=== PATIENT | male | born 1985 | race American Indian/Alaskan Native ===

== ENCOUNTER 2020-12-16 23:24 | Emergency (ER) | payer SELFPAY ==
[~2020-12-16 23:24] MED LIST: levETIRAcetam 1000 MG/NS 0.75% 1,000 MG/100 ML BAG IV ONE
[2020-12-16] MEDS ORDERED: levETIRAcetam 1,000 MG in SODIUM CHLORIDE 0.9% 100 ML IV ONE (23:43)
--- NOTE | 2020-12-16 23:46 | Emergency Department Report ---
ED Seizure HPI - General Stated Complaint: SEIZURE Time Seen by Provider: 12/16/20 23:42 Source: patient, EMS - History of Present Illness Initial Comments: 35-year-old male, history of seizure disorder, presents to ED following seizure at home. Patient reports he is noncompliant with his Keppra and Dilantin. Patient states he was just discharged from [facility] approximately 2 days ago following a brief admission for seizure. Patient states he was probably given prescriptions for seizure medications but he has not filled them. Patient reports he took an ecstasy pill tonight and states that is the likely cause of his seizure. Patient denies any fever, headache, nausea or vomiting. MD Complaint: seizure -: This evening Description of Episode: loss of consciousness Witnessed:: Yes Seizure History: known seizure disorder, history of non-compliance Possible Precipitating Event: other (Drug use) Associated Symptoms: denies other symptoms Treatments Prior to Arrival: none - Related Data Previous Rx's Medication Instructions Recorded Last Taken Type Phenytoin [Dilantin] 100 mg PO Q8HR #90 capsule 12/17/20 Unknown Rx levETIRAcetam [Keppra TAB] 500 mg PO BID #60 tablet 12/17/20 Unknown Rx Allergies Allergy/AdvReac Type Severity Reaction Status Date / Time No Known Allergies Allergy Unverified 12/16/20 23:55 ED Review of Systems ROS: Stated complaint: SEIZURE Other details as noted in HPI Comment: All other systems reviewed and negative Constitutional: denies: chills, fever Neurological: denies: headache, weakness, numbness ED Past Medical Hx - Medications Home Medications: Home Medications Medication Instructions Recorded Confirmed Last Taken Type Phenytoin [Dilantin] 100 mg PO Q8HR #90 capsule 12/17/20 Unknown Rx levETIRAcetam [Keppra TAB] 500 mg PO BID #60 tablet 12/17/20 Unknown Rx ED Physical Exam - General General appearance: alert, in no apparent distress - Head Head exam: Present: atraumatic, normocephalic - Eye Eye exam: Present: normal appearance, PERRL, EOMI - ENT ENT exam: Present: mucous membranes dry - Neck Neck exam: Present: normal inspection - Respiratory Respiratory exam: Present: normal lung sounds bilaterally. Absent: respiratory distress - Cardiovascular Cardiovascular Exam: Present: regular rate, normal rhythm - GI/Abdominal GI/Abdominal exam: Present: soft. Absent: distended, tenderness - Extremities Exam Extremities exam: Present: normal inspection - Neurological Exam Neurological exam: Present: alert, oriented X3, CN II-XII intact. Absent: motor sensory deficit - Psychiatric Psychiatric exam: Present: normal affect, normal mood - Skin Skin exam: Present: warm, dry, intact, normal color ED Course Vital Signs 12/16/20 23:48 Temperature 98.3 F Pulse Rate 99 H Respiratory 18 Rate Blood Pressure 130/88 O2 Sat by Pulse 97 Oximetry ED Medical Decision Making - Lab Data Result diagrams: 12/16/20 23:50 12/16/20 23:50 - Medical Decision Making 35-year-old male presents to ED for following seizure. Patient reports history of noncompliance with his Keppra and Dilantin. Patient also states he took ecstasy tonight. Reports he was recently discharged from [facility] 2 days ago following a brief admission for seizures. Patient is currently A&O x3. No neuro deficits on exam. Gait is normal, patient has ambulated to the phone and back to his room without difficulty. IV Keppra given. Dilantin level was low- normal, so p.o. Dilantin administered. Vital signs are stable. Patient will be discharged at this time. Outpatient follow-up advised, return precautions given. - Differential Diagnosis Seizure, drug abuse, electrolyte abnormality Critical care attestation.: If time is entered above; I have spent that time in minutes in the direct care of this critically ill patient, excluding procedure time. ED Disposition Clinical Impression: Seizure, Substance abuse, Hypokalemia Disposition: - TO HOME OR SELFCARE Is pt being admited?: No Condition: Stable Instructions: Seizure, Adult, [id number] Prescriptions: Phenytoin [Dilantin] 100 mg PO Q8HR #90 capsule levETIRAcetam [Keppra TAB] 500 mg PO BID #60 tablet Referrals: ANNY BARTON MD [Primary Care Provider] - 3-5 Days EDDIE YBARRA MD [Referring] - 3-[address] [facility] [Provider Group] - 3-5 Days Forms: Work/School Release Form(ED) Time of Disposition: 00:55
[2020-12-17 00:07] LABS: Basophils # (Auto) 0.1 K/mm3 (0.0-0.1); Basophils % (Auto) 0.8 % (0.0-1.8); Eosinophils # (Auto) 0.2 K/mm3 (0.0-0.4); Eosinophils % (Auto) 1.8 % (0.0-4.3); Hematocrit 37.9 % (35.5-45.6); Hemoglobin 12.9 gm/dl (11.8-15.2); Lymphocytes # (Auto) 2.9 K/mm3 (1.2-5.4); Lymphocytes % (Auto) 28.7 % (13.4-35.0); Mean Corpuscular HGB Conc 34 % (32-34); Mean Corpuscular Volume 88 fl (84-94); Monocytes # (Auto) 0.7 K/mm3 (0.0-0.8); Monocytes % (Auto) 6.8 % (0.0-7.3); Platelet Count 211 K/mm3 (140-440); Red Blood Count 4.29 M/mm3 (3.65-5.03); Red Cell Distribution Width 14.8 % (13.2-15.2)
[2020-12-17 00:21] LABS: BUN/Creatinine Ratio 9; Blood Urea Nitrogen 8 mg/dL (9-20); Hemolysis Index 5
[2020-12-17] MEDS ORDERED: POTASSIUM CHLORIDE ER 20 MEQ TAB PO ONE (00:24)
[2020-12-17] MEDS ORDERED: PHENYTOIN 100 MG CAPSULE.ER PO ONE (00:25)
[2020-12-17 02:59] VITALS: BP 130/76
== END 2020-12-17 01:05 | disposition home or self-care (01) ==
LOC: ED 23:24
DX: G40.909 Epilepsy, unspecified, not intractable, without status epilepticus (principal); E87.6 Hypokalemia; F19.10 Other psychoactive substance abuse, uncomplicated; Z79.899 Other long term (current) drug therapy
CPT/HCPCS: 36415; 80048; 80185; 85025; 96374; 99283; J1953

== ENCOUNTER 2021-05-18 20:45 | Emergency (ER) | payer SELFPAY ==
[2021-05-18] MEDS ORDERED: levETIRAcetam 1000 MG/NS 0.75% 1,000 MG/100 ML BAG IV ONE (21:23)
[2021-05-18] MEDS ORDERED: SODIUM CHLORIDE 0.9% 1000 ML 1,000 ML IV ONE (21:23)
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
[2021-05-18 22:04] LABS: Basophils % (Auto) 0.5 % (0.0-1.8); Eosinophils # (Auto) 0.1 K/mm3 (0.0-0.4); Eosinophils % (Auto) 1.2 % (0.0-4.3); Hematocrit 39.9 % (35.5-45.6); Hemoglobin 13.4 gm/dl (11.8-15.2); Lymphocytes # (Auto) 2.7 K/mm3 (1.2-5.4); Lymphocytes % (Auto) 28.9 % (13.4-35.0); Mean Corpuscular HGB Conc 34 % (32-34); Mean Corpuscular Volume 89 fl (84-94); Monocytes # (Auto) 0.6 K/mm3 (0.0-0.8); Monocytes % (Auto) 6.3 % (0.0-7.3); Platelet Count 194 K/mm3 (140-440); Red Blood Count 4.49 M/mm3 (3.65-5.03); Red Cell Distribution Width 15.1 % (13.2-15.2)
[2021-05-18 22:21] LABS: Alanine Aminotransferase 16 units/L (7-56); Albumin 4.2 g/dL (3.9-5); BUN/Creatinine Ratio 11; Blood Urea Nitrogen 10 mg/dL (9-20); Calcium 8.7 mg/dL (8.4-10.2); Hemolysis Index 5
[2021-05-18] MEDS ORDERED: DEXTROSE 50% IN WATER (25GM) 50 ML SYRINGE IV ONE (22:24)
[2021-05-19 01:14] VITALS: BP 135/83
== END 2021-05-19 01:20 | disposition home or self-care (01) ==
LOC: ED 20:45
DX: G40.909 Epilepsy, unspecified, not intractable, without status epilepticus (principal); F10.129 Alcohol abuse with intoxication, unspecified; E16.2 Hypoglycemia, unspecified; F12.90 Cannabis use, unspecified, uncomplicated; Z79.899 Other long term (current) drug therapy; Y90.9 Presence of alcohol in blood, level not specified
CPT/HCPCS: 36415; 80053; 82550; 82962; 85025; 96361; 96374; 96375; 99284; J1953; J7030; 80320; 99283; G0480

== ENCOUNTER 2021-06-17 05:42 | Emergency (ER) | payer SELFPAY ==
[2021-06-17] MEDS ORDERED: LORazepam 2 MG/ML VIAL IV ONE (06:00)
[2021-06-17] MEDS ORDERED: levETIRAcetam 1000 MG/NS 0.75% 1,000 MG/100 ML BAG IV ONE (06:00)
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
[2021-06-17 07:59] LABS: Basophils # (Auto) 0.1 K/mm3 (0.0-0.1); Basophils % (Auto) 0.8 % (0.0-1.8); Eosinophils # (Auto) 0.2 K/mm3 (0.0-0.4); Eosinophils % (Auto) 1.6 % (0.0-4.3); Hematocrit 43.4 % (35.5-45.6); Hemoglobin 13.8 gm/dl (11.8-15.2); Lymphocytes # (Auto) 2.1 K/mm3 (1.2-5.4); Lymphocytes % (Auto) 21.5 % (13.4-35.0); Mean Corpuscular HGB Conc 32 % (32-34); Mean Corpuscular Volume 90 fl (84-94); Monocytes # (Auto) 0.7 K/mm3 (0.0-0.8); Monocytes % (Auto) 6.8 % (0.0-7.3); Platelet Count 212 K/mm3 (140-440); Red Blood Count 4.82 M/mm3 (3.65-5.03); Red Cell Distribution Width 15.5 % (13.2-15.2)
[2021-06-17 08:45] LABS: BUN/Creatinine Ratio 10; Blood Urea Nitrogen 9 mg/dL (9-20); Calcium 8.6 mg/dL (8.4-10.2); Hemolysis Index 1
[2021-06-17 11:32] VITALS: BP 146/95
== END 2021-06-17 11:32 | disposition home or self-care (01) ==
LOC: ED 05:42
DX: R56.9 Unspecified convulsions (principal); E16.2 Hypoglycemia, unspecified; F17.200 Nicotine dependence, unspecified, uncomplicated; F12.10 Cannabis abuse, uncomplicated
CPT/HCPCS: 36415; 80048; 82962; 85025; 96374; 96375; 99284; J1953; J2060

== ENCOUNTER 2021-08-08 20:28 | Emergency (ER) | payer SELFPAY ==
[2021-08-08] MEDS ORDERED: levETIRAcetam 1000 MG/NS 0.75% 1,000 MG/100 ML BAG IV ONE (20:55)
[2021-08-08] MEDS ORDERED: LORazepam 2 MG/ML VIAL IV ONE (21:00)
[2021-08-08] MEDS ORDERED: LORazepam 2 MG/ML VIAL ONE (21:16)
[2021-08-08] MEDS ORDERED: ZIPRASIDONE MESYLATE 20 MG VIAL IM ONE (21:30)
[2021-08-08] MEDS ORDERED: diphenhydrAMINE 50 MG/ML VIAL IV ONE (21:43)
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
[2021-08-08 21:57] LABS: Alanine Aminotransferase 19 units/L (7-56); Albumin 4.6 g/dL (3.9-5); BUN/Creatinine Ratio 9; Basophils % (Auto) 0.2 % (0.0-1.8); Blood Urea Nitrogen 8 mg/dL (9-20); Calcium 9.3 mg/dL (8.4-10.2); Eosinophils % (Auto) 0.2 % (0.0-4.3); Hematocrit 48.3 % (35.5-45.6); Hemoglobin 15.2 gm/dl (11.8-15.2); Hemolysis Index 7; Lymphocytes # (Auto) 2.3 K/mm3 (1.2-5.4); Lymphocytes % (Auto) 21.8 % (13.4-35.0); Mean Corpuscular HGB Conc 32 % (32-34); Mean Corpuscular Volume 92 fl (84-94); Monocytes # (Auto) 0.5 K/mm3 (0.0-0.8); Monocytes % (Auto) 4.3 % (0.0-7.3); Platelet Count 270 K/mm3 (140-440); Red Blood Count 5.25 M/mm3 (3.65-5.03); Red Cell Distribution Width 15.3 % (13.2-15.2)
[2021-08-08] MEDS ORDERED: SODIUM CHLORIDE 0.9% 1000 ML 1,000 ML IV ONE (22:19)
[2021-08-09 06:53] VITALS: BP 127/84
== END 2021-08-09 07:15 | disposition home or self-care (01) ==
LOC: ED 20:28
DX: G40.909 Epilepsy, unspecified, not intractable, without status epilepticus (principal); F10.929 Alcohol use, unspecified with intoxication, unspecified; F17.200 Nicotine dependence, unspecified, uncomplicated; F12.90 Cannabis use, unspecified, uncomplicated; Z79.899 Other long term (current) drug therapy
CPT/HCPCS: 36415; 80053; 85025; 96361; 96372; 96374; 96375; 99284; J1953; J2060; J3486; J7030; 80320; Q0162; G0480

== ENCOUNTER 2021-10-26 22:47 | Emergency (ER) | payer OTHER ==
[2021-10-26] MEDS ORDERED: LIDOCAINE-MPF (1%) 10 MG/1 ML VIAL 5 ML INFILTRATI ONE (22:57)
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
[2021-10-26 23:19] VITALS: BP 134/78
== END 2021-10-27 07:15 ==
LOC: ED 22:47
DX: F17.200 Nicotine dependence, unspecified, uncomplicated; F12.90 Cannabis use, unspecified, uncomplicated
CPT/HCPCS: 96372; 99282; J0696; J3490